=== PATIENT | female | born 1975 | race Caucasian/White ===

== ENCOUNTER 2019-08-19 19:26 | Emergency (ER) | payer MEDICAID ==
[~2019-08-19] VITALS: Ht 154.9 cm; Wt 108.6 kg
[2019-08-19 19:35] VITALS: BP 147/93
--- NOTE | 2019-08-19 19:52 | NUR ---
AMBULATES TO WITH UPRIGHT STEADY GAIT. URINE SAMPLE COLLECTED. PT RETURNS TO LOBBY AWAITING A BED. VSS.
--- NOTE | 2019-08-19 20:10 | NUR ---
PT AMBULATED TO ER BED 08
--- NOTE | 2019-08-19 20:20 | NUR ---
PT 44 Y/O FEMALE BIB SELF FOR C/O FEELINGS OF WITHDRAWL FROM OXYCODONE AND NORCO. PT STATES SHE FEELS SHAKY, SWEATY, GENERALIZED BODY ACHES, N/V/D. PT ADMITS TO TAKIN 10-12 PILLS OF OXYCODONE, 7 PILLS OF NORCO DAILY X 1 YEAR. PT STATES SHE WANTS TO QUIT BUT HAS BEEN UNABLE TO RECIVE TREATMENT. VSS. PT ON MONTIOR. MEDHX: HTN ALLERGIES: NKA RX: METROPOLOL 10MG BID.
[2019-08-19 20:29] LABS: BASOPHILS # (AUTO) 0.1 K/uL (0.00-0.22); BASOPHILS % (AUTO) 0.4 % (0.0-2.0); EOSINOPHILS # (AUTO) 0.5 K/uL (0-0.4); EOSINOPHILS % (AUTO) 3.8 % (0.0-4.0); HEMATOCRIT 41.1 % (36-48); HEMOGLOBIN 13.2 g/dL (12.0-16.0); LYMPHOCYTES # (AUTO) 3.6 K/uL (2.5-16.5); LYMPHOCYTES % (AUTO) 29.6 % (20.5-51.1); MEAN CORPUSCULAR HEMOGLOBIN 27 pg (27-31); MEAN CORPUSCULAR HGB CONC 32 g/dL (33-37); MEAN CORPUSCULAR VOLUME 82.8 fL (80-94); MONOCYTES # (AUTO) 0.7 K/uL (0.8-1.0); MONOCYTES % (AUTO) 5.6 % (1.7-9.3); NEUTROPHILS # (AUTO) 7.3 K/uL (1.8-7.7); NEUTROPHILS % (AUTO) 60.6 % (42.2-75.2); PLATELET COUNT (AUTO) 352 K/uL (140-450); RED BLOOD CELL COUNT(AUTO) 4.97 MIL/uL (4.20-5.40); RED CELL DISTRIBUTION WIDTH 14.5 % (11.6-13.7)
[2019-08-19 20:44] LABS: BARBITURATE, URINE NEG. ng/ml (NEG <=200); BENZODIAZEPINE, URINE NEG. ng/mL (NEG <=200); CANNABINOID, URINE NEG. ng/mL (NEG <=50); COCAINE, URINE NEG. ng/mL (NEG <=300); OPIATE, URINE NEG. ng/mL (NEG <=2000); PHENCYCLIDINE SCREEN,URINE NEG. ng/mL (NEG <=25)
[2019-08-19 21:03] LABS: ANION GAP 10.4 (8-16); CARBON DIOXIDE 30.9 mmol/L (21-32); CHLORIDE 101 mmol/L (98-107); CREATININE 1.2 mg/dL (0.6-1.3); GFR ARICAN-AMERICAN 63 mL/min (>90); GLUCOSE 111 mg/dL (74-106); POTASSIUM 4.3 mmol/L (3.5-5.1); SODIUM SERUM 138 mmol/L (136-145); UREA NITROGEN, BLOOD 18 mg/dL (7-18)
[2019-08-19 21:15] LABS: ALBUMIN 3.5 g/dL (3.4-5.0); ASPARTATE AMINOTRANSFERASE 16 U/L (15-37); TOTAL BILIRUBIN 0.2 mg/dL (0.0-1.0)
--- NOTE | 2019-08-19 21:15 | NUR ---
PT REFUSED MEDICATION AND STATED SHE WOULD JUST GET THEM FILLED AT A PHARMACY.
[2019-08-19 21:16] LABS: ACETAMINOPHEN < 0.5 ug/ml (10-30); SALICYLATE < 2.8 mg/dL (2.8-20.0)
--- NOTE | 2019-08-19 21:20 | NUR ---
Patient discharged with v/s stable. Written and verbal after care instructions given and explained. Patient alert, oriented and verbalized understanding of instructions. Ambulatory with steady gait. All questions addressed prior to discharge. ID band removed. Patient advised to follow up with PMD. Rx of ZOFRAN, ATIVAN given. Patient educated on indication of medication including possible reaction and side effects. Opportunity to ask questions provided and answered.
[2019-08-19] MEDS: ONDANSETRON 4 MG ODT PO ONE (21:22)
[2019-08-19] MEDS: LORazepam 2 MG/ML VIAL IVP ONE (21:22)
[2019-08-19 21:23] VITALS: BP 105/91
== END 2019-08-19 21:20 | disposition home or self-care (01) ==
LOC: MED 19:26
DX: F11.20 Opioid dependence, uncomplicated (principal); I10 Essential (primary) hypertension; F32.9 Major depressive disorder, single episode, unspecified
CPT/HCPCS: 36415; 80053; 80305; 85025; 93005; 99284; G0480; G0482